=== PATIENT | male | born 1950 | race Caucasian/White ===

== ENCOUNTER 2017-03-22 15:58 | Emergency (ER) | payer SELFPAY ==
[~2017-03-22] VITALS: Ht 190.5 cm; Wt 57.8 kg
[2017-03-22] MEDS ORDERED: DIAZEPAM 5 MG/ML, 10ML VIAL IVPush ONE (16:30)
[2017-03-22] MEDS ORDERED: KETOROLAC 30 MG/1 ML IVPush ONE (16:30)
[2017-03-22] MEDS ORDERED: DIAZEPAM 5 MG/ML, 2ML IVPush ONE (16:30)
[2017-03-22] MEDS ORDERED: KETOROLAC 30 MG/1 ML ONE (16:40)
[2017-03-22 16:50] LABS: HEMATOCRIT 48.7 % (39.2-51.8); HEMOGLOBIN 16.7 g/dL (13.7-18.0); WHITE BLOOD COUNT 5.9 x10^3/uL (3.4-10)
[2017-03-22 17:03] LABS: BLOOD UREA NITROGEN 12 mg/dL (7-18)
[2017-03-22 18:23] LABS: PATH.CAST-FLAG NOT PRESENT; SPERM-FLAG NOT PRESENT; SRC-FLAG NOT PRESENT; XTAL-FLAG NOT PRESENT; YLC-FLAG NOT PRESENT
[2017-03-22] MEDS ORDERED: SODIUM CHLORIDE 0.9% 1,000 ML IV ONE (19:39)
[2017-03-22] MEDS ORDERED: SODIUM CHLORIDE 0.9% 1,000ML IVBOLUS ONE (20:00)
[2017-03-22] MEDS ORDERED: SODIUM CHLORIDE FLUSH 10ML SYR IVF ONE (20:00)
[2017-03-22 21:00] VITALS: BP 157/94
== END 2017-03-22 18:52 | disposition home or self-care (01) ==
LOC: ED 18:46
DX: M54.32 Sciatica, left side (principal)
CPT/HCPCS: 36415; 72110; 73502; 80048; 81001; 82040; 82550; 83735; 85025; 87086; 93005; 96361; 96374; 96375; 99285; J1885; J3360; J7030